=== PATIENT | male | born 1950 | race American Indian/Alaskan Native ===

== ENCOUNTER 2019-07-12 19:29 | Emergency (ER) | payer MEDICARE, OTHER ==
[2019-07-12] MEDS ORDERED: Acetaminophen/HYDROcodone 325-10 MG Tab PO ONE (19:30)
[2019-07-12 19:41] VITALS: BP 133/74; PULSE 94
--- NOTE | 2019-07-12 19:45 | EDM.PDOC ---
ED HPI GENERAL MEDICAL PROBLEM - General Chief Complaint: Lower Extremity Injury/Pain Stated Complaint: BROKE LITTLE TOE LEFT SIDE Time Seen by Provider: 07/12/19 19:43 Source of Information: Reports: Patient History Limitations: Reports: No Limitations - History of Present Illness INITIAL COMMENTS - FREE TEXT/NARRATIVE: injured left 5th toe last Tuesday still hurts and all swollen. Left Toe-Little Pain Score (Numeric/FACES): 8 - Related Data Allergies Allergy/AdvReac Type Severity Reaction Status Date / Time No Known Allergies Allergy Verified 07/05/18 14:58 Home Meds: Home Meds Acetaminophen [Tylenol Arthritis] 2 tab PO ASDIRECTED PRN 07/05/18 [History] Chlorthalidone 25 mg PO DAILY 07/05/18 [History] Finasteride 5 mg PO DAILY 07/05/18 [History] Megestrol Acetate 40 mg PO DAILY 07/05/18 [History] diphenhydrAMINE HCl [Unisom] 1 cap PO BEDTIME PRN 07/05/18 [History] Past Medical History HEENT History: Reports: Impaired Vision Respiratory History: Reports: Other (See Below) Gastrointestinal History: Reports: Other (See Below) Other Gastrointestinal History: Unsure if he has colon CA. Will be seeing a specialist coming up Genitourinary History: Reports: Prostate Disorder, Other (See Below) Other Genitourinary History: Unsure if has prostrate cancer, will being seeing a seeing a specialist. States he was also told his kidney or liver may have been affected from a recent scan he had done. Musculoskeletal History: Reports: None - Infectious Disease History Infectious Disease History: Reports: None - Past Surgical History Musculoskeletal Surgical History: Reports: Shoulder Surgery Social & Family History - Family History Family Medical History: Noncontributory - Caffeine Use Caffeine Use: Reports: Coffee, Tea - Living Situation & Occupation Living situation: Reports: with Family Review of Systems - Review of Systems Review Of Systems: ROS reveals no pertinent complaints other than HPI. ED EXAM, GENERAL - Physical Exam Exam: See Below Exam Limited By: No Limitations General Appearance: Alert, WD/WN, Mild Distress, Other (discomfort) Ears: Hearing Grossly Normal Throat/Mouth: Normal Voice, No Airway Compromise Head: Atraumatic Neck: Non-Tender, Full Range of Motion Respiratory/Chest: No Respiratory Distress Cardiovascular: Regular Rate, Rhythm GI/Abdominal: Soft, Non-Tender Extremities: Other (left 5th toe swollen tender R/P, NV wnl, gait limited to pain) Neurological: Alert, Oriented, Normal Cognition, No Motor/Sensory Deficits Psychiatric: Normal Affect, Normal Mood Skin Exam: Warm, Dry, Normal Color Lymphatic: No Adenopathy Course - Vital Signs Last Recorded V/S: Last Vital Signs Temp 36.6 C 07/12/19 19:37 Pulse 94 07/12/19 19:37 Resp 18 07/12/19 19:37 BP 133/74 07/12/19 19:37 Pulse Ox 95 07/12/19 19:37 - Orders/Labs/Meds Orders: Active Orders 24 hr Category Date Time Status Toes Fifth Digit Lt T4 [CR] Urgent Exams 07/12/19 19:43 Ordered - Re-Assessments/Exams Free Text/Narrative Re-Assessment/Exam: 07/12/19 20:15 results discussed crow pt. Departure - Departure Time of Disposition: 20:15 Disposition: Home, Self-Care 01 Condition: Good Clinical Impression: Toe fracture, left Qualifiers: Encounter type: initial encounter Toe: lesser toe Fracture type: closed Phalanx : middle Physeal involvement: not involving physis Qualified Code(s): S92.522A - Displaced fracture of middle phalanx of left lesser toe(s), initial encounter for closed fracture - Discharge Information Instructions: Toe Fracture, [id number] Forms: ED Department Discharge Additional Instructions: 1) tape little toe to 4th toe for 10 days with daily tape change 2) elevate foot as much as possible next 48 hours 3) follow up at clinic rx kellie carr 10 x 1 - My Orders Last 24 Hours: My Active Orders 07/12/19 19:43 Toes Fifth Digit Lt T4 [CR] Urgent - Assessment/Plan Last 24 Hours: My Active Orders 07/12/19 19:43 Toes Fifth Digit Lt T4 [CR] Urgent
[2019-07-12] MEDS ORDERED: Acetaminophen/HYDROcodone 325-10 MG Tab ONE (20:20)
== END 2019-07-12 20:28 | disposition home or self-care (01) ==
LOC: DL.ED 19:29
DX: S92.512A Displaced fracture of proximal phalanx of left lesser toe(s), initial encounter for closed fracture (principal); X58.XXXA Exposure to other specified factors, initial encounter
CPT/HCPCS: 73660; 99283; A9270

== ENCOUNTER 2021-03-04 07:05 | Day surgery (SDC) | payer MEDICARE, OTHER ==
[~2021-03-04 07:05] MED LIST: Acetaminophen 325 MG Tab PO PRN; Acetaminophen/Codeine 300-30 MG Tab PO PRN; Moxifloxacin 0.5% Ophth Soln 3 ML Bottle EYERT ONE; Ondansetron 4 MG/2 ML SDV IVPUSH PRN; Phenylephrine 10% Ophth Soln 5 ML Bot EYERT ONE; Povidone-Iodine 5% Sterile Ophth Soln 30 ML Bottle EYERT ONE; Proparacaine 0.5% Ophth Soln 15 ML Bottle EYERT ONE; Sodium Chloride 0.9% 10 ML Syringe FLUSH PRN; Timolol Maleate 0.5% Ophth Soln 5 ML Bottle EYERT ONE; Tropicamide 1% Ophth Soln 15 ML Bottle EYERT ONE
[2021-03-04] MEDS ORDERED: Midazolam 1 MG/ML 2 ML SDV IV ONE (07:06)
[2021-03-04] MEDS ORDERED: Dexamethasone 4 MG/ML SDV IV ONE (07:06)
[2021-03-04] MEDS ORDERED: Sodium Chloride 0.9% 10 ML Syringe IV ONE (07:06)
[2021-03-04] MEDS ORDERED: Cataract Ophth Solution EYERT ONE (07:48)
[2021-03-04] MEDS ORDERED: Tetracaine HCl/PF 0.5% 4 ML Bottle EYERT ONE (08:26)
[2021-03-04] MEDS ORDERED: Povidone-Iodine 5% Sterile Ophth Soln 30 ML Bottle EYERT ONE (08:26)
[2021-03-04] MEDS ORDERED: Dexamethasone/Neomycin/Polymyxin B Ophth Oint 3.5 GM Tube EYERT ONE (08:27)
[2021-03-04] MEDS ORDERED: Lidocaine 1% 30 ML SDV ONE (08:28)
[2021-03-04] MEDS ORDERED: Vancomycin 500 MG SDV ONE (08:28)
[2021-03-04] MEDS ORDERED: Apraclonidine 0.5% Ophth Soln 5 ML Bot EYERT ONE (08:28)
[2021-03-04] MEDS ORDERED: Diclofenac Sodium 0.1% Ophth Soln 5 ML Bottle EYERT ONE (08:28)
[2021-03-04] MEDS ORDERED: Chondroitin Sulfate/Hyaluronate Sodium Ophth Inj 0.75 ML Syringe EYERT ONE (08:29)
[2021-03-04] MEDS ORDERED: Balanced Salt Solution Ophth Irrig 500 ML Bottle IOCULAR ONE (08:29)
[2021-03-04] MEDS ORDERED: Dexamethasone 4 MG/ML SDV IOCULAR ONE (08:29)
--- NOTE | 2021-03-04 12:06 | OR ---
DATE: 03/04/2021 PREOPERATIVE DIAGNOSIS: Visually significant mixed cataract, right eye. POSTOPERATIVE DIAGNOSIS: Visually significant mixed cataract, right eye. PROCEDURE: Extracapsular cataract extraction with intraocular lens implant, right eye. ANESTHESIA: Topical/local MAC. COMPLICATIONS: None. INDICATION: Mr. Zhao was seen in the clinic. He is unhappy with his vision, noticing a slow progressive change. He has difficulty seeing television, books, difficulty with reading, difficulty seeing road signs, difficulty with bright lights and glare. 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 Strauss. Dr. Strauss was not able to improve his vision with the changing glasses. Explained the options, offered cataract surgery, and I explained risks including the potential for infection, retinal detachment, loss of vision, need for additional surgery, and risks associated with anesthesia. We discussed implant options and refractive options. He has requested a monofocal implant. He understands that he may still require glasses for some activities, especially near work. OPERATIVE DESCRIPTION: After informed consent was obtained and the risks, benefits, and alternatives were explained, the patient was brought to the operative suite and topical anesthesia was administered. The patient was then prepped and draped in the sterile fashion and attention was placed on the right eye. A sterile lid speculum was placed into the right eye to allow operative exposure. A full-thickness paracentesis was made in the temporal portion of the operative eye. Preservative-free lidocaine 0.1 mL was injected into the anterior chamber followed by viscoelastic. A full-thickness corneal incision was then made into the anterior chamber. A bent needle cystotome was used to create a small adri in the anterior capsule. The capsulorrhexis forceps was then used to create a 360-degree curvilinear capsulorrhexis. The nucleus was then removed using a phacoemulsification handpiece and the remaining cortical material was then removed with irrigation and aspiration handpiece. Following removal of the cortical material, the capsular bag was then inspected and noted to be free of any holes or tears. Viscoelastic was then injected into the capsular bag and the intraocular lens was inserted into the capsular bag. The viscoelastic material was then removed from both the anterior and posterior chambers and from behind the IOL. The lens and capsular bag were then reinspected. The IOL was well centered and the capsular bag intact. The wound and paracentesis sites were inspected and hydrated with balanced saline solution. Both were found to be self- sealing. The intraocular pressure was assessed digitally and found to be within normal range. A good red reflex was noted at the completion of the procedure. No complications occurred during the operation. At the completion of the procedure, Maxitrol, Voltaren, and Iopidine drops were placed into the operative eye. A sterile eye shield was placed over the operative eye and the patient was transported to the postoperative recovery area having tolerated the procedure well. Postoperative instructions were given along with a postoperative appointment. The patient was advised to call with any questions or concerns. [facility] /[id number]
[2021-03-05 08:26] VITALS: BP 126/57; PULSE 78
== END 2021-03-04 09:41 | disposition home or self-care (01) ==
LOC: DL.SDS 07:05
PROVIDERS: ATTEND Ophthalmology
DX: H26.8 Other specified cataract (principal); F17.220 Nicotine dependence, chewing tobacco, uncomplicated; H52.03 Hypermetropia, bilateral; Z79.899 Other long term (current) drug therapy
CPT/HCPCS: 66984; A9270; J1100; J2250; J3370; V2632

== ENCOUNTER 2021-03-11 06:52 | Day surgery (SDC) | payer MEDICARE, OTHER ==
[2021-03-11] MEDS ORDERED: Midazolam 1 MG/ML 2 ML SDV IV ONE (06:53)
[2021-03-11] MEDS ORDERED: Dexamethasone 4 MG/ML SDV IV ONE (06:53)
[2021-03-11] MEDS ORDERED: Sodium Chloride 0.9% 10 ML Syringe IV ONE (06:53)
[2021-03-11] MEDS ORDERED: Acetaminophen 325 MG Tab PO PRN (07:00)
[2021-03-11] MEDS ORDERED: Ondansetron 4 MG/2 ML SDV IVPUSH PRN (07:00)
[2021-03-11] MEDS ORDERED: Povidone-Iodine 5% Sterile Ophth Soln 30 ML Bottle EYELF ONE ×2 (07:00→08:17)
[2021-03-11] MEDS ORDERED: Proparacaine 0.5% Ophth Soln 15 ML Bottle EYELF ONE (07:00)
[2021-03-11] MEDS ORDERED: Acetaminophen/Codeine 300-30 MG Tab PO PRN (07:00)
[2021-03-11] MEDS ORDERED: Timolol Maleate 0.5% Ophth Soln 5 ML Bottle EYELF ONE (07:00)
[2021-03-11] MEDS ORDERED: Tropicamide 1% Ophth Soln 15 ML Bottle EYELF ONE (07:00)
[2021-03-11] MEDS ORDERED: Phenylephrine 10% Ophth Soln 5 ML Bot EYELF ONE (07:00)
[2021-03-11] MEDS ORDERED: Sodium Chloride 0.9% 10 ML Syringe FLUSH PRN (07:00)
[2021-03-11] MEDS ORDERED: Cataract Ophth Solution EYELF ONE (07:00)
[2021-03-11] MEDS ORDERED: Moxifloxacin 0.5% Ophth Soln 3 ML Bottle EYELF ONE (07:00)
[2021-03-11] MEDS ORDERED: Tetracaine HCl/PF 0.5% 4 ML Bottle EYELF ONE (08:17)
[2021-03-11] MEDS ORDERED: Apraclonidine 0.5% Ophth Soln 5 ML Bot EYELF ONE (08:17)
[2021-03-11] MEDS ORDERED: Dexamethasone/Neomycin/Polymyxin B Ophth Oint 3.5 GM Tube EYELF ONE (08:17)
[2021-03-11] MEDS ORDERED: Diclofenac Sodium 0.1% Ophth Soln 5 ML Bottle EYELF ONE (08:18)
[2021-03-11] MEDS ORDERED: Chondroitin Sulfate/Hyaluronate Sodium Ophth Inj 0.75 ML Syringe EYELF ONE (08:19)
[2021-03-11] MEDS ORDERED: Vancomycin 500 MG SDV ONE (08:19)
[2021-03-11] MEDS ORDERED: Lidocaine 1% 30 ML SDV ONE (08:19)
[2021-03-11] MEDS ORDERED: Balanced Salt Solution Ophth Irrig 500 ML Bottle IOCULAR ONE (08:19)
--- NOTE | 2021-03-11 13:40 | OR ---
DATE: 03/11/2021 PREOPERATIVE DIAGNOSIS: Visually significant symptomatic cataract, left eye. POSTOPERATIVE DIAGNOSIS: Visually significant symptomatic cataract, left eye. PROCEDURE: Extracapsular cataract extraction with intraocular lens implant, left eye. ANESTHESIA: Topical/local MAC. COMPLICATIONS: None. INDICATION: Mr. Zhao was seen in the clinic with complaints of blurred vision; difficulty seeing television, books, driving; difficulty with night driving; difficulty seeing street signs. Examination revealed visually significant cataract. I explained options, offered cataract surgery and I explained risks including the potential for infection, retinal detachment, loss of vision, need for additional surgery, amongst others. We discussed implant options. He has requested a monofocal implant. He is comfortable wearing glasses following surgery if necessary. He did see his operations plant attendant, Dr. Strauss prior to cataract surgery. Dr. Strauss was not able to improve his vision or meet his visual needs with the change in glasses. OPERATIVE DESCRIPTION: After informed consent was obtained and the risks, benefits, and alternatives were explained, the patient was brought to the operative suite and topical anesthesia was administered. The patient was then prepped and draped in the sterile fashion and attention was placed on the left eye. A sterile lid speculum was placed into the left eye to allow operative exposure. A full-thickness paracentesis was made in the temporal portion of the operative eye. Preservative-free lidocaine 0.1 mL was injected into the anterior chamber followed by viscoelastic. A full-thickness corneal incision was then made into the anterior chamber. A bent needle cystotome was used to create a small adri in the anterior capsule. The capsulorrhexis forceps was then used to create a 360-degree curvilinear capsulorrhexis. The nucleus was then removed using a phacoemulsification handpiece and the remaining cortical material was then removed with irrigation and aspiration handpiece. Following removal of the cortical material, the capsular bag was then inspected and noted to be free of any holes or tears. Viscoelastic was then injected into the capsular bag and the intraocular lens was inserted into the capsular bag. The viscoelastic material was then removed from both the anterior and posterior chambers and from behind the IOL. The lens and capsular bag were then reinspected. The IOL was well centered and the capsular bag intact. The wound and paracentesis sites were inspected and hydrated with balanced saline solution. Both were found to be self- sealing. The intraocular pressure was assessed digitally and found to be within normal range. A good red reflex was noted at the completion of the procedure. No complications occurred during the operation. At the completion of the procedure, Maxitrol, Voltaren, and Iopidine drops were placed into the operative eye. A sterile eye shield was placed over the operative eye and the patient was transported to the postoperative recovery area having tolerated the procedure well. Postoperative instructions were given along with a postoperative appointment. The patient was advised to call with any questions or concerns. [facility] /[id number]
[2021-03-11 14:30] VITALS: BP 99/58; PULSE 63
== END 2021-03-11 09:37 | disposition home or self-care (01) ==
LOC: DL.SDS 06:52
PROVIDERS: ATTEND Ophthalmology
DX: H26.9 Unspecified cataract (principal); F17.210 Nicotine dependence, cigarettes, uncomplicated; H52.03 Hypermetropia, bilateral; Z79.899 Other long term (current) drug therapy
CPT/HCPCS: 00142; 66984; A9270; J1100; J2250; J3370; V2632

== ENCOUNTER 2021-05-04 02:37 | Emergency (ER) | payer MEDICARE, OTHER ==
[2021-05-04 02:43] VITALS: BP 122/70; PULSE 97
--- NOTE | 2021-05-04 02:49 | EDM.PDOC ---
ED HPI GENERAL MEDICAL PROBLEM - General Chief Complaint: Abdominal Pain Stated Complaint: AMBULANCE - CANCER Time Seen by Provider: 05/04/21 02:40 Source of Information: Reports: Patient History Limitations: Reports: No Limitations - History of Present Illness INITIAL COMMENTS - FREE TEXT/NARRATIVE: This 71 yo male patient was brought to the ED by [facility] due to lower abdominal p ain. The patient reports his pain started this evening at about 1700 and has continued to get worse. The patient reports he did drink about 1 pint of alcohol trying to get rid of the pain. The patient reports he has a history of prostate cancer and is scheduled to have an MRI in [place] on 05/12/21. The patient reports he has chronic blood in his urine. The patient reports he had blood in his stool this afternoon. The patient reports increased pain and the inability to move due to increased pain. Onset: Today, Sudden Onset Date: 05/03/21 Onset Time: 17:00 Duration: Constant Location: Reports: Abdomen (lower abdominal) Quality: Reports: Ache, Sharp, Stabbing Severity: Severe Improves with: Reports: None Worsens with: Reports: None Context: Reports: Other Bilateral Lower Abdomen Pain Score (Numeric/FACES): 10 - Related Data Allergies Allergy/AdvReac Type Severity Reaction Status Date / Time No Known Allergies Allergy Verified 05/04/21 02:47 Home Meds: Home Meds Finasteride 5 mg PO DAILY 07/05/18 [History] Acetaminophen [Tylenol] 325 mg PO DAILY 03/02/21 [History] Albuterol Sulfate [Proair Hfa] 2 puff INH ASDIRECTED PRN 03/02/21 [History] Cholecalciferol (Vitamin D3) [Vitamin D3] 25 mcg PO BID 03/02/21 [History] Cyanocobalamin (Vitamin B-12) [Vitamin B-12] 100 mcg PO BID 03/02/21 [History] Hydrocodone/Acetaminophen [Hydrocodone-Acetamin 5-325 mg] 1 tab PO Q4H PRN 03/02/21 [History] Ibuprofen 600 mg PO Q4H 03/02/21 [History] Ketorolac [Acular 0.5% Ophth Soln] 1 drop EYEBOTH BID 03/02/21 [History] Ofloxacin [Ocuflox 0.3% Ophth Soln] 1 drop EYEBOTH ASDIRECTED 03/02/21 [History] Prazosin [Minpress] 1 mg PO BEDTIME 03/02/21 [History] Sertraline HCl 50 mg PO DAILY 03/02/21 [History] Tiotropium [Spiriva HandiHaler] 2 puff INH DAILY 03/02/21 [History] prednisoLONE Acetate [Prednisolone Acetate] 1 drop EYEBOTH QID 03/02/21 [History] traZODone 50 mg PO BEDTIME 03/02/21 [History] Past Medical History HEENT History: Reports: Cataract, Impaired Vision Cardiovascular History: Reports: None Respiratory History: Reports: None Gastrointestinal History: Reports: Other (See Below) Other Gastrointestinal History: Unsure if he has colon CA. Will be seeing a specialist coming up Genitourinary History: Reports: Prostate Disorder, Other (See Below) Other Genitourinary History: Unsure if has prostrate cancer, will being seeing a seeing a specialist. States he was also told his kidney or liver may have been affected from a recent scan he had done. Musculoskeletal History: Reports: None Neurological History: Reports: None Psychiatric History: Reports: None Hematologic History: Reports: None Immunologic History: Reports: None Oncologic (Cancer) History: Reports: Prostate - Infectious Disease History Infectious Disease History: Reports: None - Past Surgical History Male Surgical History: Social & Family History - Family History Family Medical History: No Pertinent Family History - Caffeine Use Caffeine Use: Reports: Coffee, Tea - Living Situation & Occupation Living situation: Reports: with Family ED ROS GENERAL - Review of Systems Review Of Systems: Comprehensive ROS is negative, except as noted in HPI. ED EXAM, GI/ABD - Physical Exam Exam: See Below Exam Limited By: No Limitations General Appearance: Alert, WD/WN, Moderate Distress Eyes: Bilateral: Normal Appearance, EOMI Ears: Normal External Exam, Normal Canal, Hearing Grossly Normal, Normal TMs Nose: Normal Inspection, Normal Mucosa, No Blood Throat/Mouth: Normal Inspection, Normal Lips, Normal Teeth, Normal Gums, Normal Oropharynx, Normal Voice, No Airway Compromise Head: Atraumatic, Normocephalic Neck: Normal Inspection, Supple, Non-Tender, Full Range of Motion Respiratory/Chest: No Respiratory Distress, Lungs Clear, Normal Breath Sounds, No Accessory Muscle Use, Chest Non-Tender Cardiovascular: Normal Peripheral Pulses, Regular Rate, Rhythm, No Edema, No Gallop, No JVD, No Murmur, No Rub GI/Abdominal Exam: Normal Bowel Sounds, No Organomegaly, No Distention, No Abnormal Bruit, No Mass, Pelvis Stable, Tender (lower abdomen) (Male) Exam: Deferred Rectal (Males) Exam: Normal Rectal Tone Back Exam: Normal Inspection, Full Range of Motion, NT Extremities: Normal Inspection Neurological: Alert, Oriented, CN II-XII Intact, Normal Cognition, Normal Gait, Normal Reflexes, No Motor/Sensory Deficits Psychiatric: Normal Affect, Normal Mood Skin Exam: Warm, Dry, Intact, Normal Color, No Rash Lymphatic: No Adenopathy Course - Vital Signs Last Recorded V/S: Last Vital Signs Temp 99.2 F 05/04/21 02:43 Pulse 97 05/04/21 02:43 Resp 16 05/04/21 02:43 BP 122/70 05/04/21 02:43 Pulse Ox 93 L 05/04/21 02:43 - Orders/Labs/Meds Orders: Active Orders 24 hr Category Date Time Status Abdomen Pelvis w Cont [CT] Urgent Exams 05/04/21 03:19 Ordered UA RFX CYNDEE AND CULT IF INDIC [URIN] Urgent Lab 05/04/21 02:43 Ordered Acetaminophen [Tylenol Extra Strength] Med 05/04/21 03:41 Once 1,000 mg PO ONETIME ONE Labs: Laboratory Tests 05/04/21 05/04/21 05/04/21 Range/Units 02:40 02:40 02:40 WBC 10.1 H (5.0-10.0) 10^3/uL RBC 3.83 L (4.6-6.2) 10^6/uL Hgb 13.4 L (14.0-18.0) g/dL Hct 38.4 L (40.0-54.0) % MCV 100.3 H D (80-100) fL MCH 35.0 H (27.0-34.0) pg MCHC 34.9 (33.0-35.0) g/dL Plt Count 119 L D (150-450) 10^3/uL Neut % (Auto) 49.2 (42.2-75.2) % Lymph % (Auto) 34.4 (20.5-50.1) % [place] % (Auto) 11.8 H (2-8) % Eos % (Auto) 3.5 H (1.0-3.0) % Baso % (Auto) 1.1 H (0.0-1.0) % Sodium 147 H (136-145) mmol/L Potassium 3.2 L (3.5-5.1) mmol/L Chloride 110 H (98-107) mmol/L Carbon Dioxide 24 (21-32) mmol/L Anion Gap 16.2 H (7-13) mEq/L BUN 6 L (7-18) mg/dL Creatinine 0.65 L (0.70-1.30) mg/dL Est Cr Clr Drug Dosing TNP Estimated GFR (MDRD) > 60 BUN/Creatinine Ratio 9.2 (No establ ref range) Glucose 102 H (70-99) mg/dL Calcium 7.7 L (8.5-10.1) mg/dL Total Bilirubin 1.5 H (0.2-1.0) mg/dL AST 185 H (15-37) U/L ALT 59 (16-63) U/L Alkaline Phosphatase 213 H (46-116) U/L Ammonia 53 H (11-32) umol/L Total Protein 7.2 (6.4-8.2) g/dL Albumin 2.3 L (3.4-5.0) g/dL Globulin 4.9 Albumin/Globulin Ratio 0.47 Amylase 71 (25-115) U/L Lipase 332 (73-393) U/L Salicylates (2.8-20(Therapeutic)) mg/dL Acetaminophen 0 L (10-30 (Therapeutic)) ug/mL Ethyl Alcohol 356 (0) mg/dL 05/04/21 Range/Units 02:40 WBC (5.0-10.0) 10^3/uL RBC (4.6-6.2) 10^6/uL Hgb (14.0-18.0) g/dL Hct (40.0-54.0) % MCV (80-100) fL MCH (27.0-34.0) pg MCHC (33.0-35.0) g/dL Plt Count (150-450) 10^3/uL Neut % (Auto) (42.2-75.2) % Lymph % (Auto) (20.5-50.1) % [place] % (Auto) (2-8) % Eos % (Auto) (1.0-3.0) % Baso % (Auto) (0.0-1.0) % Sodium (136-145) mmol/L Potassium (3.5-5.1) mmol/L Chloride (98-107) mmol/L Carbon Dioxide (21-32) mmol/L Anion Gap (7-13) mEq/L BUN (7-18) mg/dL Creatinine (0.70-1.30) mg/dL Est Cr Clr Drug Dosing Estimated GFR (MDRD) BUN/Creatinine Ratio (No establ ref range) Glucose (70-99) mg/dL Calcium (8.5-10.1) mg/dL Total Bilirubin (0.2-1.0) mg/dL AST (15-37) U/L ALT (16-63) U/L Alkaline Phosphatase (46-116) U/L Ammonia (11-32) umol/L Total Protein (6.4-8.2) g/dL Albumin (3.4-5.0) g/dL Globulin Albumin/Globulin Ratio Amylase (25-115) U/L Lipase (73-393) U/L Salicylates < 2.8 L (2.8-20(Therapeutic)) mg/dL Acetaminophen (10-30 (Therapeutic)) ug/mL Ethyl Alcohol (0) mg/dL Meds: Medications Discontinued Medications Generic Name Dose Route Start Last Admin Trade Name Freq PRN Reason Stop Dose Admin Iopamidol 100 ml 05/04/21 03:19 05/04/21 03:36 Iopamidol 612 Mg/Ml 100 Ml Bottle IVPUSH 05/04/21 03:20 100 ml ONETIME ONE Administration Departure - Departure Time of Disposition: 03:41 Disposition: Home, Self-Care 01 Condition: Undetermined Clinical Impression: Abdominal pain Qualifiers: Abdominal location: lower abdomen, unspecified Qualified Code(s): R10.30 - Lower abdominal pain, unspecified - Discharge Information *PRESCRIPTION DRUG MONITORING PROGRAM REVIEWED*: Not Applicable *COPY OF PRESCRIPTION DRUG MONITORING REPORT IN PATIENT SERGEI: Not Applicable Forms: ED Department Discharge Care Plan Goals: The patient did not want to have the CT scan. The patient left without any additional evaluation or further management. If the patient has any additional symptoms or concerns, the patient should either return to the emergency department or visit his primary care facility. Sepsis Event Note (ED) - Evaluation Sepsis Screening Result: No Definite Risk - Focused Exam Vital Signs: Vital Signs Temp Pulse Resp BP Pulse Ox 05/04/21 02:43 99.2 F 97 16 122/70 93 L - My Orders Last 24 Hours: My Active Orders 05/04/21 02:43 UA RFX CYNDEE AND CULT IF INDIC [URIN] Urgent 05/04/21 03:19 Abdomen Pelvis w Cont [CT] Urgent 05/04/21 03:41 Acetaminophen [Tylenol Extra Strength] 1,000 mg PO ONETIME ONE - Assessment/Plan Last 24 Hours: My Active Orders 05/04/21 02:43 UA RFX CYNDEE AND CULT IF INDIC [URIN] Urgent 05/04/21 03:19 Abdomen Pelvis w Cont [CT] Urgent 05/04/21 03:41 Acetaminophen [Tylenol Extra Strength] 1,000 mg PO ONETIME ONE
[2021-05-04 03:05] LABS: ANION GAP 16.2 mEq/L (7-13); CHLORIDE,CL 110 mmol/L (98-107); SODIUM,NA 147 mmol/L (136-145)
[2021-05-04 03:15] LABS: ACETAMINOPHEN 0 ug/mL (10-30 (Therapeutic))
[2021-05-04] MEDS ORDERED: Iopamidol 612 MG/ML 100 ML Bottle IVPUSH ONE (03:19)
[2021-05-04] MEDS ORDERED: Acetaminophen 500 MG Tab PO ONE (03:41)
== END 2021-05-04 03:48 | disposition home or self-care (01) ==
LOC: DL.ED 02:37
DX: R10.31 Right lower quadrant pain (principal); R10.32 Left lower quadrant pain
CPT/HCPCS: 36415; 80053; 80143; 80179; 80307; 82140; 82150; 82272; 83690; 85025; 99283; 99284; A9270; Q9967

== ENCOUNTER 2021-05-17 13:09 | Emergency (ER) | payer MEDICARE, OTHER | END 2021-05-17 14:40 | disposition left against medical advice (07) | LOC: DL.ED 13:09 | DX: Z53.21 Procedure and treatment not carried out due to patient leaving prior to being seen by health care provider (principal) ==

== ENCOUNTER 2021-05-17 20:20 | Emergency (ER) | payer MEDICARE, OTHER ==
[2021-05-17 20:54] VITALS: BP 123/67; PULSE 97
[2021-05-17] MEDS ORDERED: cefTRIAXone 1 GM, Lidocaine 1% 2.1 ML IM ONE ×2 (21:03)
--- NOTE | 2021-05-17 21:03 | EDM.PDOC ---
ED HPI GENERAL MEDICAL PROBLEM - General Chief Complaint: Genitourinary Problem Stated Complaint: CANCER / PROSTATE PAIN Time Seen by Provider: 05/17/21 20:57 Source of Information: Reports: Patient History Limitations: Reports: No Limitations - History of Present Illness INITIAL COMMENTS - FREE TEXT/NARRATIVE: Pt is here for pain and swelling in his scrotum for the last 3 weeks. He was recently diagnosed with prostate cancer. He has been having a lot of pain and swelling and thinks it may be getting infected. He denies any fevers or chills. No penile discharge or lesions noted. He just wants something for pain and a shot of antibiotics. Duration: Week(s): (3) Left Scrotum Pain Score (Numeric/FACES): 9 - Related Data Allergies Allergy/AdvReac Type Severity Reaction Status Date / Time No Known Allergies Allergy Verified 05/17/21 20:53 Home Meds: Home Meds Finasteride 5 mg PO DAILY 07/05/18 [History] Acetaminophen [Tylenol] 325 mg PO DAILY 03/02/21 [History] Albuterol Sulfate [Proair Hfa] 2 puff INH ASDIRECTED PRN 03/02/21 [History] Cholecalciferol (Vitamin D3) [Vitamin D3] 25 mcg PO BID 03/02/21 [History] Cyanocobalamin (Vitamin B-12) [Vitamin B-12] 100 mcg PO BID 03/02/21 [History] Hydrocodone/Acetaminophen [Hydrocodone-Acetamin 5-325 mg] 1 tab PO Q4H PRN 03/02/21 [History] Ibuprofen 600 mg PO Q4H 03/02/21 [History] Ketorolac [Acular 0.5% Ophth Soln] 1 drop EYEBOTH BID 03/02/21 [History] Ofloxacin [Ocuflox 0.3% Ophth Soln] 1 drop EYEBOTH ASDIRECTED 03/02/21 [History] Prazosin [Minpress] 1 mg PO BEDTIME 03/02/21 [History] Sertraline HCl 50 mg PO DAILY 03/02/21 [History] Tiotropium [Spiriva HandiHaler] 2 puff INH DAILY 03/02/21 [History] prednisoLONE Acetate [Prednisolone Acetate] 1 drop EYEBOTH QID 03/02/21 [History] traZODone 50 mg PO BEDTIME 03/02/21 [History] Past Medical History HEENT History: Reports: Cataract, Impaired Vision Cardiovascular History: Reports: None Respiratory History: Reports: None Gastrointestinal History: Reports: Other (See Below) Other Gastrointestinal History: Unsure if he has colon CA. Will be seeing a specialist coming up Genitourinary History: Reports: Prostate Disorder, Other (See Below) Other Genitourinary History: Unsure if has prostrate cancer, will being seeing a seeing a specialist. States he was also told his kidney or liver may have been affected from a recent scan he had done. Musculoskeletal History: Reports: None Neurological History: Reports: None Psychiatric History: Reports: None Hematologic History: Reports: None Immunologic History: Reports: None Oncologic (Cancer) History: Reports: Prostate - Infectious Disease History Infectious Disease History: Reports: None - Past Surgical History Male Surgical History: Social & Family History - Family History Family Medical History: No Pertinent Family History - Caffeine Use Caffeine Use: Reports: Coffee, Tea - Living Situation & Occupation Living situation: Reports: with Family ED ROS GENERAL - Review of Systems Review Of Systems: Comprehensive ROS is negative, except as noted in HPI. ED EXAM, RENAL/ - Physical Exam Exam: See Below Exam Limited By: No Limitations General Appearance: Alert, WD/WN, No Apparent Distress Eye Exam: Bilateral Eye: Normal Inspection Ears: Normal External Exam Throat/Mouth: Normal Voice, No Airway Compromise Head: Atraumatic, Normocephalic Neck: Supple Respiratory/Chest: No Respiratory Distress, Lungs Clear, Normal Breath Sounds, No Accessory Muscle Use Cardiovascular: Normal Peripheral Pulses, Regular Rate, Rhythm, No Murmur GI/Abdominal: Soft, No Distention (Male) Exam: Hernia (left inguinal, soft, reducible, no distinct masses appreciated. ) Rectal (Males) Exam: Deferred Extremities: No Pedal Edema, Normal Capillary Refill Neurological: Alert, Oriented, Normal Cognition, No Motor/Sensory Deficits Psychiatric: Normal Affect, Normal Mood Skin Exam: Warm, Dry, Intact, Other (mild cellulitis over left scrotum, no significant induration) Course - Vital Signs Last Recorded V/S: Last Vital Signs Temp 98.9 F 05/17/21 20:53 Pulse 97 05/17/21 20:53 Resp 16 05/17/21 20:53 BP 123/67 05/17/21 20:53 Pulse Ox 95 05/17/21 20:53 Departure - Departure Time of Disposition: 21:03 Disposition: Home, Self-Care 01 Condition: Fair Clinical Impression: Inguinal hernia of left side without obstruction or gangrene Cellulitis Qualifiers: Site of cellulitis: trunk Site of cellulitis of trunk: groin Qualified Code(s): L03.314 - Cellulitis of groin - Discharge Information *PRESCRIPTION DRUG MONITORING PROGRAM REVIEWED*: Not Applicable *COPY OF PRESCRIPTION DRUG MONITORING REPORT IN PATIENT SERGEI: Not Applicable Instructions: Inguinal Hernia, Adult, [id number] Additional Instructions: Wear briefs for support Follow up with primary care provider for further evaluation and treatment of your hernia Over the counter medications as needed for discomfort Sepsis Event Note (ED) - Evaluation Sepsis Screening Result: No Definite Risk - Focused Exam Vital Signs: Vital Signs Temp Pulse Resp BP Pulse Ox 05/17/21 20:53 98.9 F 97 16 123/67 95
== END 2021-05-17 21:12 | disposition home or self-care (01) ==
LOC: DL.ED 20:20
DX: L03.314 Cellulitis of groin (principal); K40.90 Unilateral inguinal hernia, without obstruction or gangrene, not specified as recurrent; Z79.899 Other long term (current) drug therapy
CPT/HCPCS: 96372; 99283; J0696